=== PATIENT | male | born 1980 | race Caucasian/White ===

== ENCOUNTER 2020-09-26 00:07 | Emergency (ER) | payer SELFPAY ==
[~2020-09-26] VITALS: Ht 170.2 cm; Wt 77.3 kg
[2020-09-26] MEDS ORDERED: IBUPROFEN 800 MG TABLET PO ONE (01:00)
[2020-09-26] MEDS ORDERED: PERTUSS(ACELL),DIPH,TET VAC/PF 0.5 ML VIAL IM ONE (01:00)
[2020-09-26] MEDS ORDERED: AMOX TR/POT CLAV 875 MG/125 MG TABLET PO ONE (01:00)
[2020-09-26 01:30] VITALS: BP 118/69
== END 2020-09-26 02:08 | disposition home or self-care (01) ==
LOC: EMS 00:08
DX: S61.432A Puncture wound without foreign body of left hand, initial encounter (principal); X58.XXXA Exposure to other specified factors, initial encounter; Y93.89 Activity, other specified; Y92.89 Other specified places as the place of occurrence of the external cause; Y99.8 Other external cause status
CPT/HCPCS: 90471; 90715; 99283